=== PATIENT | female | born 1995 | race Caucasian/White ===

== ENCOUNTER 2023-05-24 12:05 | Outpatient (CLI) | payer MEDICAID, SELFPAY ==
--- NOTE | 2023-05-24 12:15 | CRLHL7_ITS ---
For Patients: As a result of the Century Cures Act, medical imaging exams and procedure reports are released immediately into your electronic medical record. You may view this report before your referring provider. If you have questions, please contact your health care provider. INDICATION: First trimester scan, establish dates. COMPARISON: None. TECHNIQUE: Real-time peraza-scale imaging of the pelvis was performed. FINDINGS: Yoke sac is upper limits of normal measuring 5.4 x 5.5 millimeters. Intrauterine gestational sac is present with mean sac diameter 15.1 millimeters, 6 weeks 1 day. pole is present measuring 5.3 millimeters, 6 weeks 2 days. No heart tones. The ovaries are normal. No ectopic. No pelvic free fluid. IMPRESSION: Intrauterine gestational sac with pole. pole measures 5.3 millimeters, 6 weeks 2 days. No heart tones. Follow-up in 10-14 days suggested. Dictated by Ludwig Jones MD @ 05/24/2023 1:03:35 PM (Electronically Signed)
== END 2023-05-24 12:06 | disposition home or self-care (01) ==
LOC: US 12:06
PROVIDERS: Visit Provider Advanced Practice Midwife
DX: Z34.91 Encounter for supervision of normal pregnancy, unspecified, first trimester (principal); Z3A.01 Less than 8 weeks gestation of pregnancy
CPT/HCPCS: 76817

== ENCOUNTER 2023-05-24 13:46 | Outpatient (CLI) | payer MEDICAID, SELFPAY | END 2023-05-24 13:47 | disposition home or self-care (01) | PROVIDERS: Visit Provider Advanced Practice Midwife | DX: Z34.91 Encounter for supervision of normal pregnancy, unspecified, first trimester (principal); Z3A.01 Less than 8 weeks gestation of pregnancy | CPT/HCPCS: 84702; 86850; 86900; 86901 ==

== ENCOUNTER 2023-05-26 09:42 | Outpatient (CLI) | payer MEDICAID, SELFPAY | END 2023-05-26 09:43 | disposition home or self-care (01) | LOC: NFLDREF 05-27 07:51 | PROVIDERS: Visit Provider Advanced Practice Midwife | DX: Z34.90 Encounter for supervision of normal pregnancy, unspecified, unspecified trimester (principal) | CPT/HCPCS: 84702 ==

== ENCOUNTER 2023-06-07 07:12 | Outpatient (CLI) | payer MEDICAID, SELFPAY ==
--- NOTE | 2023-06-07 07:15 | CRLHL7_ITS ---
For Patients: As a result of the Century Cures Act, medical imaging exams and procedure reports are released immediately into your electronic medical record. You may view this report before your referring provider. If you have questions, please contact your health care provider. Indication: Follow-up. Assess for viability Technique: Sonography the pelvis was performed. This includes grayscale and Doppler. The center was performed transvaginally Comparison: May 24, 2023 Findings: Again noted is a pole measuring 5 millimeters which is unchanged since the prior study. This corresponds to 6 weeks and 1 day. No heart activity is identified either by M-mode Doppler at or at real-time. Again noted is a gestational measures 2.5 centimeters and is somewhat irregular. A yolk sac is no longer visualized. No adnexal mass. Impression: Nonviable intrauterine first-trimester Dictated by Edson Simmons MD @ 06/07/2023 8:32:27 AM (Electronically Signed)
== END 2023-06-07 07:13 | disposition home or self-care (01) ==
PROVIDERS: Visit Provider Advanced Practice Midwife
DX: Z34.91 Encounter for supervision of normal pregnancy, unspecified, first trimester (principal); O03.9 Complete or unspecified spontaneous abortion without complication
CPT/HCPCS: 76817

== ENCOUNTER 2023-06-07 09:03 | Outpatient (CLI) | payer MEDICAID, SELFPAY | END 2023-06-07 09:04 | disposition home or self-care (01) | LOC: NFLDREF 09:04 | PROVIDERS: Visit Provider Advanced Practice Midwife | DX: O20.9 Hemorrhage in early pregnancy, unspecified (principal) | CPT/HCPCS: J2791 ==

== ENCOUNTER 2023-07-20 13:51 | Outpatient (CLI) | payer MEDICAID, SELFPAY ==
--- NOTE | 2023-07-20 14:00 | CRLHL7_ITS ---
For Patients: As a result of the Century Cures Act, medical imaging exams and procedure reports are released immediately into your electronic medical record. You may view this report before your referring provider. If you have questions, please contact your health care provider. CLINICAL HISTORY: INCOMPLETE MISSED Comparison 06/07/2023 TECHNIQUE: 2D peraza scale and color Doppler images were acquired of the pelvis using a transvaginal approach. FINDINGS: On transvaginal imaging, the myometrium has a normal uniform echotexture. The uterus measures 7.3 x 4.6 x 4.3 cm. The endometrial lining measures 15 mm in thickness. The endometrium is heterogeneous. However, no endometrial fluid is noted. Mild vascularity of the endometrium suggested. The left ovary measures 3.2 x 1.4 x 2.0 cm in size and the right ovary measures 3.5 x 1.5 x 2.3 cm. The ovaries demonstrate normal arterial and venous blood flow on color Doppler analysis. There are no suspicious fluid collections within the cul-de-sac. IMPRESSION: Thickened and heterogeneous endometrium with some mild internal vascularity. No endometrial fluid. In the appropriate clinical setting, cannot exclude mild retained products. Dictated by Ludwig Jones MD @ 07/21/2023 10:03:43 AM (Electronically Signed)
== END 2023-07-20 13:52 | disposition home or self-care (01) ==
LOC: US 13:52
PROVIDERS: Visit Provider Advanced Practice Midwife
DX: O02.1 Missed abortion (principal); Z01.818 Encounter for other preprocedural examination
CPT/HCPCS: 76830; 84702; 85610; 85730; 86850; 86870; 86900; 86901

== ENCOUNTER 2023-07-20 15:02 | Outpatient (CLI) | payer MEDICAID, SELFPAY | END 2023-07-20 15:03 | disposition home or self-care (01) | PROVIDERS: Visit Provider Advanced Practice Midwife | DX: O03.9 Complete or unspecified spontaneous abortion without complication (principal) | CPT/HCPCS: 84702; 85610; 85730; 86850; 86870; 86880; 86900; 86901 ==

== ENCOUNTER 2023-07-21 08:16 | Day surgery (SDC) | payer MEDICAID, SELFPAY ==
[2023-07-21] MEDS: DOXYCYCLINE HYCLATE 200 MG in 0.9 % SODIUM CHLORIDE Mini-bag 100 ML 100 MG IVPB (08:21)
[2023-07-21 08:31] VITALS: BP 115/68; PULSE 75; RESP 16; TEMP 36.9; O2SAT 96; BMI 24.4
--- NOTE | 2023-07-21 09:38 | W.PM.H&PU ---
History & Physical Update History & Physical Update H&P Reviewed and patient assessed: No changes noted H&P Updates: Preoperative diagnosis: Retained products of conception after spontaneous Planned procedures: hysteroscopy, dilation and curettage Physical exam: General: No acute distress, tearful Psych: Alert and oriented x3, full affect HEENT: Normocephalic, atraumatic Heart: Regular rate and rhythm, no murmur rub or gallop Lungs: Clear to auscultation bilaterally Labs: Labs from 07/20/2023: Blood type A negative, antibody positive Hemoglobin 13.7, platelets 205 Quant HCG 41.81, down from 27,139 on 05/26/2023
[2023-07-21] MEDS: LACTATED RINGERS 1000 ML 1,000 ML 100 ML IV (10:10)
[2023-07-21] MEDS: LIDOCAINE 1% 5 ml (pf) 5 ML VIAL 20 ML INJECTION (10:11)
[2023-07-21] MEDS: SODIUM CHLORIDE 0.9 % (FLUSH) 10 ML SYRINGE IVF (10:14)
[2023-07-21] MEDS: SILVER NITRATE APPLICATOR 1 EACH STICK..EA. TOPICAL (10:36)
[2023-07-21 10:48] VITALS: BP 96/58; PULSE 84; RESP 16; TEMP 36.2; O2SAT 99
--- NOTE | 2023-07-21 10:48 | W.ANESCHARGE ---
Anesthesia Charges Start Date/Time Anesthesia Start Date: 07/21/23 Anesthesia Start Time: 09:48 Stop Date/Time Anesthesia Stop Date: 07/21/23 Anesthesia Stop Time: 10:50
--- NOTE | 2023-07-21 10:49 | W.PM.GYNPROC ---
Procedure Note Date of procedure: 07/21/23 Pre-op diagnosis: Retained products of conception / incomplete spontaneous Post-op diagnosis: same Procedure: hysteroscopy, dilation and curettage Anesthesia: MAC and local Complications: None Surgeon: Bernice Antoine MD Estimated blood loss (mL): 20 IV fluids (mL): 600 Pathology: specimen obtained, sent to pathology (endometrial curettings) Condition: stable Disposition: same day Findings: Saline deficit: 560 mL 1. Upon pelvic exam under anesthesia, a perineal body defect was noted. The cervix cervix and vagina were otherwise normal in appearance. Uterus was mobile and anteverted, of normal size and texture. There were no palpable adnexal masses. 2. Upon hysteroscopy, survey of the endometrial cavity revealed abundant debris near the fundus. The cavity shape was normal. The cervix was patulous, and there was loss of the saline used for hysteroscopic distention medium around the hysteroscope and through the cervix for much of the case. Procedure Description: Procedure in detail: Patient was taken to the operating room with IV running. She received doxycycline in preoperative prophylaxis. She was positioned in dorsal lithotomy position with her legs fully supported in Yellofin stirrups. Monitored anesthesia care was administered. She was prepped and draped in the usual sterile fashion. Exam under anesthesia was performed for the above-noted findings. Speculum was inserted. Cervix visualized and grasped along the anterior lip with a single-tooth tenaculum. Paracervical block was performed for total of 10 mL of 1% lidocaine. Cervix was serially dilated to accommodate the TRUCLEAR hysteroscope. This was assembled with saline inflow and outflow in place. The line was flushed of bubbles. The hysteroscope was advanced through the cervix into the endometrial cavity for the above noted findings. The tissue morcellator was then inserted through the operating channel. Window lock was performed. Under direct visualization, the endometrial cavity was circumferentially curetted with the tissue morcellator. Given the persistent loss of hysteroscopy fluid, the tenaculum was removed and a ring forcep placed on the cervix, around this hysteroscope, to achieve better distention of the uterus. When the uterus appeared cleaned of all remaining placental fragments, the hysteroscope and morcellator were then removed from the uterus. Tenaculum was removed from the anterior lip of cervix. Hemostasis was achieved with silver nitrate. Patient tolerated procedure well. She was taken to recovery area in stable condition.
[2023-07-21 10:50] VITALS: BP 101/59; PULSE 86; RESP 16; O2SAT 99
--- NOTE | 2023-07-21 10:51 | W.ANESCHARGE ---
Anesthesia Charges Start Date/Time Anesthesia Start Date: 07/21/23 Anesthesia Start Time: 09:48 Stop Date/Time Anesthesia Stop Date: 07/21/23 Anesthesia Stop Time: 10:50
[2023-07-21 11:00] VITALS: BP 97/78; PULSE 80; RESP 16; O2SAT 97
[2023-07-21] MEDS: KETOROLAC 30 MG/ML inj IVP (11:09)
[2023-07-21 11:15] VITALS: BP 119/82; PULSE 57; RESP 16; O2SAT 99
[2023-07-21 11:30] VITALS: BP 109/77; PULSE 59; RESP 16; O2SAT 98
== END 2023-07-21 12:00 | disposition home or self-care (01) ==
PROVIDERS: Visit Provider Obstetrics & Gynecology
PROC: (CPT 58558; principal; 2023-07-21 09:20)
DX: O03.4 Incomplete spontaneous abortion without complication (principal)
CPT/HCPCS: 58558; 00952; 85018; 86850; 86900; 86901; 88305; A9270; J1885; J2250; J2405; J2704; J2791; J3010; J3490; J7120

== ENCOUNTER 2025-01-28 07:09 | Outpatient (CLI) | payer BC, SELFPAY ==
--- NOTE | 2025-01-28 07:15 | CRLHL7_ITS ---
For Patients: As a result of the Century Cures Act, medical imaging exams and procedure reports are released immediately into your electronic medical record. You may view this report before your referring provider. If you have questions, please contact your health care provider. INDICATION: Dating and viability. FINDINGS: A transabdominal and endovaginal pelvic ultrasound shows a single live intrauterine . Belk-rump length = 1.5 cm corresponding to an EGA of 8 weeks 0 days. cardiac activity present 169 beats per minute and regular. Small indentation in the gestational sac. 3.1 cm probable corpus luteum cyst in the right ovary. The ovaries are otherwise unremarkable. Impression : 1. Single live intrauterine measuring 8 weeks 0 days. 2. Small indentation in the gestational sac is a nonspecific finding and may be of no clinical significance. Dictated by German Knight MD @ 01/28/2025 11:50:08 AM (Electronically Signed)
== END 2025-01-28 07:10 | disposition home or self-care (01) ==
LOC: US 07:10
PROVIDERS: Visit Provider Midwife
DX: Z34.91 Encounter for supervision of normal pregnancy, unspecified, first trimester (principal); Z3A.08 8 weeks gestation of pregnancy
CPT/HCPCS: 76817; 83021; 84439; 84443; 86703; 86706; 86803; 86850; 86900; 86901; 87086; 87340

== ENCOUNTER 2025-01-28 08:45 | Outpatient (CLI) | payer BC, SELFPAY | END 2025-01-28 08:46 | disposition home or self-care (01) | PROVIDERS: Visit Provider Midwife | DX: Z34.81 Encounter for supervision of other normal pregnancy, first trimester (principal) | CPT/HCPCS: 83020; 83021; 84439; 84443; 85660; 86592; 86703; 86704; 86706; 86762; 86787; 86803; 86850; 86900; 86901; 87086; 87340 ==

== ENCOUNTER 2025-01-31 07:13 | Outpatient (CLI) | payer BC, SELFPAY ==
--- NOTE | 2025-01-31 07:15 | CRLHL7_ITS ---
For Patients: As a result of the Century Cures Act, medical imaging exams and procedure reports are released immediately into your electronic medical record. You may view this report before your referring provider. If you have questions, please contact your health care provider. INDICATION: Enlarged thyroid COMPARISON: none TECHNIQUE: Cash scale and color Doppler images were acquired of the thyroid gland. FINDINGS: The thyroid gland demonstrates heterogeneous echogenicity and has a smooth outer contour. The right lobe measures 6.8 x 2.6 x 2.2 cm and the left lobe measures 7.6 x 2.4 x 2.3 cm in size. Isthmus measures 1.3 cm. Solid and cystic nodule posterior left thyroid lobe measures 1.9 x 1.1 x 1.6 cm, TR 3. Additional solid and cystic nodule left thyroid lobe midportion measures 1.3 x 0.9 x 1.3 cm, TR 3. Mostly cystic nodule right thyroid lobe inferior pole measures 8 x 6 x 8 millimeters, TR 2. Additional mostly cystic nodule inferior pole right thyroid lobe measures 10 x 6 x 8 millimeters, TR 2. Solid and cystic nodule midportion right thyroid lobe measures 16 x 7 x 12 millimeters, TR 3. The color Doppler images demonstrate increased vascularity. There is no evidence of cervical lymphadenopathy or parathyroid mass. IMPRESSION: Enlarged, heterogeneous and hypervascular thyroid. No suspicious thyroid nodule. Dictated by Ludwig Jones MD @ 01/31/2025 8:25:07 PM (Electronically Signed)
== END 2025-01-31 07:14 | disposition home or self-care (01) ==
LOC: US 07:14
PROVIDERS: Visit Provider Midwife
DX: E04.9 Nontoxic goiter, unspecified (principal)
CPT/HCPCS: 76536

== ENCOUNTER 2025-02-25 09:13 | Outpatient (CLI) | payer BC, SELFPAY ==
[2025-02-25 17:38] LABS: Bacterial Vaginosis* Negative (Negative); Candida glab/krus NOT DETECTED (No Detected); Candida species DETECTED (No Detected); Trichomonas vaginalis NOT DETECTED (No Detected)
== END 2025-02-25 09:14 | disposition home or self-care (01) ==
PROVIDERS: Visit Provider Midwife
DX: N76.0 Acute vaginitis (principal); R82.90 Unspecified abnormal findings in urine; Z11.3 Encounter for screening for infections with a predominantly sexual mode of transmission
CPT/HCPCS: 81513; 87086; 87481; 87491; 87591; 87661

== ENCOUNTER 2025-04-22 13:52 | Outpatient (CLI) | payer BC, SELFPAY ==
--- NOTE | 2025-04-22 14:00 | CRLHL7_ITS ---
For Patients: As a result of the Century Cures Act, medical imaging exams and procedure reports are released immediately into your electronic medical record. You may view this report before your referring provider. If you have questions, please contact your health care provider. OB ULTRASOUND LMP: 12/02/2024. RORO by LMP: 09/08/2025. GA: 20 w, 1 d. INDICATION: screen. TECHNIQUE: Real time peraza scale imaging of the fetus was performed. Transabdominal imaging performed. position: Vertex. Cervix: Visualized. Technique: Transabdominal. Length of closed cervix: 5.0 cm. Placenta/cord: Bilobed, fundal. Placenta tip to internal OS: 7.3 cm. Umbilical Cord: 3-vessel cord. Placenta insertion: Central. Amniotic Fluid: 4.1cm SDP (greater than/equal to: 2- less than 8 cm). SURVEY: Observed Structures. Calvarium/Spine: Cerebellum: 2.1 cm, 20 w 6 d. Cisterna Magna: 5.1 mm. Nuchal Fold: 5.2 mm. Lateral Ventricle: 5.5 mm. CSP: Yes. Midline Falx: Yes. Choroid Plexus: Yes. Spine: Yes. Abdomen: Stomach: Yes. Abd Cord Insertion: Yes. Urinary Bladder: Yes. Kidneys: Yes. Diaphragm: Yes. Face: Nose/lips: Yes. Orbital view: Yes. Profile: Yes. Limbs: Upper Extremities: Yes. Lower Extremities: Yes. Hands: Yes. Feet: Yes. Vascular: 4-Chamber Heart: Yes. LVOT: Yes. RVOT: Yes. 3VV: Yes. 3VTV: Yes. BPD: 4.7 cm. 20 w, 1 d, 49 percent. HC: 17.5 cm. 20 w, 0 d, 36 percent. AC: 15.9 cm. 21 w, 0 d, 74 percent. FL: 3.2 cm. 19 w, 6 d, 32 percent. FL/AC ratio: 19.90 percent. HC/AC ratio: 1.10. heart rate: 155 bpm. age by this US: 20 w, 3 d. RORO by this US: 08/18/2025. EFW: 354 g. Weight: 0 lbs, 12 oz. Percentile by RORO: 63 percent. IMPRESSION: 1. Right renal pelvis measures 3.0 mm. Left renal pelvis measures 4.3 mm. Remainder of the anatomic survey is normal. Follow-up in the 3rd trimester recommended. 2. Fundal placenta is present which appears bilobed. No previa. 3. Concordance of clinical and sonographic dating. 4. Possible scarring at the lower uterine segment on the left. Ludwig Jones M.D. Diagnostic Radiologist [email or web address] TONI/Dictated by: Ludwig Jones MD @ 04/22/2025 7:17:00 PM (Electronically Signed)
== END 2025-04-22 13:53 | disposition home or self-care (01) ==
LOC: US 13:52
PROVIDERS: Visit Provider Registered Nurse
DX: Z34.92 Encounter for supervision of normal pregnancy, unspecified, second trimester (principal); Z3A.20 20 weeks gestation of pregnancy
CPT/HCPCS: 76805

== ENCOUNTER 2025-06-14 12:35 | Outpatient (CLI) | payer BC, SELFPAY | END 2025-06-14 12:36 | disposition home or self-care (01) | LOC: NFLDREF 06-18 04:32 | PROVIDERS: Visit Provider Midwife | DX: Z34.82 Encounter for supervision of other normal pregnancy, second trimester (principal) | CPT/HCPCS: 86592; 86850 ==

== ENCOUNTER 2025-06-28 08:01 | Outpatient (CLI) | payer BC, SELFPAY | END 2025-06-28 08:02 | disposition home or self-care (01) | PROVIDERS: Advanced Practice Midwife; Visit Provider Midwife | DX: R73.09 Other abnormal glucose (principal); Z34.93 Encounter for supervision of normal pregnancy, unspecified, third trimester; R79.89 Other specified abnormal findings of blood chemistry | CPT/HCPCS: 82951; 82952; 84443 ==

== ENCOUNTER 2025-07-16 13:03 | Outpatient (CLI) | payer BC, SELFPAY ==
--- NOTE | 2025-07-16 13:00 | CRLHL7_ITS ---
For Patients: As a result of the Century Cures Act, medical imaging exams and procedure reports are released immediately into your electronic medical record. You may view this report before your referring provider. If you have questions, please contact your health care provider. OB ULTRASOUND FOLLOW-UP/LIMITED, 07/16/2025 CLINICAL HISTORY: Follow-up renal pelvis. COMPARISON: 04/22/2025. TECHNIQUE: Real time peraza scale imaging of the fetus was performed. Transabdominal imaging performed. FINDINGS: LMP: 12/02/2024. RORO by LMP: 09/08/2025. GA: 32 weeks 2 days. Cervix: Not visualized. Positioning: Breech. Amniotic Fluid: 7.7 cm SDP. Placenta: Technique: TA. Placenta Position: Anterior, posterior. Dopplers: Heart Rate: 138 bpm. IMPRESSION: Left renal pelvis measures 7.3 mm. Right renal pelvis measures 6.6 mm. Ludwig Jones M.D. Diagnostic Radiologist [email or web address] Transcribed: 8:35 am DW/Dictated by: Ludwig Jones MD @ 07/17/2025 6:36:00 AM (Electronically Signed)
== END 2025-07-16 13:04 | disposition home or self-care (01) ==
LOC: US 13:03
PROVIDERS: Visit Provider Midwife
DX: O26.893 Other specified pregnancy related conditions, third trimester (principal); R93.89 Abnormal findings on diagnostic imaging of other specified body structures; Z3A.32 32 weeks gestation of pregnancy
CPT/HCPCS: 76816

== ENCOUNTER 2025-08-13 14:02 | Outpatient (CLI) | payer BC, SELFPAY ==
--- NOTE | 2025-08-13 14:00 | CRLHL7_ITS ---
For Patients: As a result of the Century Cures Act, medical imaging exams and procedure reports are released immediately into your electronic medical record. You may view this report before your referring provider. If you have questions, please contact your health care provider. OB ULTRASOUND INDICATION: Breech presentation. Growth. LMP: 12/02/2024. RORO by LMP or US: 09/08/2025. GA: 36 w, 2 d. Single. COMPARISON: 07/16/2025, 04/22/2025,01/28/2025. TECHNIQUE: Real time peraza scale imaging of the fetus was performed. Transabdominal imaging performed. CERVIX: Not visualized. POSITIONING: Breech. AMNIOTIC FLUID: 22.8 cm LOS. 8.2 cm SDP (N: greater than 2 x 1 cm). PLACENTA: Technique: Transabdominal. PLACENTA POSITION: Anterior, fundal, posterior. DOPPLER: heart rate: 134 bpm. BIOMETRY: BPD: 9.5 cm. 39 w, 0 d, greater than 97 percent. HC: 34.1 cm. 39 w, 2 d, 87.6 percent. AC: 34.7 cm. 38 w, 4 d, greater than 97 percent. FL: 6.7 cm. 34 w, 5 d, 11.1 percent. FL/AC ratio: 19.5 percent. HC/AC ratio: 1.0. EFW: 3313 g. Weight: 7 lbs, 5 oz. age by this US: 37 w, 6 d. RORO by this US: 08/28/2025. Percentile by RORO: 88.4 percent. IMPRESSION: 1. Sonographic gestational age 37 weeks 6 days and sonographic due date 08/28/2025. Sonographic age is 11 days ahead of the clinical age. 2. Estimated weight 88th percentile. Abdominal circumference greater than 97th percentile. BPD also greater than 97th percentile. 3. Amniotic fluid single deepest pocket 8.2 cm, LOS 22.8 cm. 4. Left renal pelvis measures 12 mm. Right renal pelvis measures 8 mm. follow-up recommended. 5. Nuchal cord is present with the cord wrapped around the neck 2 times. Ludwig Jones M.D. Diagnostic Radiologist [email or web address] TONI/Dictated by: Ludwig Jones MD @ 08/13/2025 7:49:00 PM (Electronically Signed)
== END 2025-08-13 14:03 | disposition home or self-care (01) ==
LOC: US 14:03
PROVIDERS: Visit Provider Obstetrics & Gynecology
DX: O36.63X0 Maternal care for excessive fetal growth, third trimester, not applicable or unspecified (principal); O32.1XX0 Maternal care for breech presentation, not applicable or unspecified; Z3A.36 36 weeks gestation of pregnancy; Z34.93 Encounter for supervision of normal pregnancy, unspecified, third trimester
CPT/HCPCS: 76816; 87081; 87653

== ENCOUNTER 2025-08-13 14:12 | Outpatient (CLI) | payer BC, SELFPAY ==
[2025-08-14 14:23] LABS: Strep B DNA Probe POSITIVE (Negative)
[2025-08-14 14:42] LABS: Strep B Susceptibility Needed? No
== END 2025-08-13 14:13 | disposition home or self-care (01) ==
LOC: NFLDREF 14:13
PROVIDERS: Visit Provider Obstetrics & Gynecology
DX: Z34.93 Encounter for supervision of normal pregnancy, unspecified, third trimester (principal); Z3A.36 36 weeks gestation of pregnancy
CPT/HCPCS: 87081; 87653

== ENCOUNTER 2025-08-19 07:14 | Outpatient (CLI) | payer BC, SELFPAY ==
--- NOTE | 2025-08-19 07:15 | CRLHL7_ITS ---
For Patients: As a result of the Century Cures Act, medical imaging exams and procedure reports are released immediately into your electronic medical record. You may view this report before your referring provider. If you have questions, please contact your health care provider. OB ULTRAOSOUND FOLLOW-UP LIMITED CLINICAL HISTORY: Labor and delivery complicated by cord around neck. COMPARISON: 08/13/2025, 07/16/2025, 04/22/2025. TECHNIQUE: Real time peraza scale imaging of the fetus was performed. Transabdominal imaging performed. FINDINGS: RORO by LMP/US: 09/08/2025. GA: 37 weeks 1 day. Gestation: Single. Cervix: Not visualized. Positioning: Breech. Amniotic Fluid: 6.9 cm SDP. Placenta: Technique: TA. Placenta Position: Anterior/posterior. Bilobed. Dopplers: Heart Rate: 141 bpm. IMPRESSION: 1. The umbilical cord is wrapped around the baby???s neck two times. 2. Bilateral renal pelviectasis measures 8.8 mm on the left and 7.9 mm on the right. Post- follow-up recommended. Ludwig Jones M.D. Diagnostic Radiologist [email or web address] Transcribed: 9:11 am DW/Dictated by: Ludwig Jones MD @ 08/19/2025 8:26:00 AM (Electronically Signed)
== END 2025-08-19 07:15 | disposition home or self-care (01) ==
PROVIDERS: Visit Provider Obstetrics & Gynecology
DX: O69.1XX0 Labor and delivery complicated by cord around neck, with compression, not applicable or unspecified (principal); Z3A.37 37 weeks gestation of pregnancy
CPT/HCPCS: 76816

== ENCOUNTER 2025-09-04 05:47 | Inpatient (IN) | payer BC, SELFPAY ==
[2025-09-04] VITALS (22 sets, daily range): BP systolic 99–124; BP diastolic 59–82; PULSE 76–103; RESP 16–20; TEMP 36.3–36.7; O2SAT 95–98; BMI 31.3
[2025-09-04] MEDS: LACTATED RINGERS 1000 ML 1,000 ML 1025 ML IV (06:13)
[2025-09-04 06:22] LABS: Hematocrit* 36.9 % (33.0-51.0); Hemoglobin* 12.2 gm/dL (12.0-16.0); Immature Granulocytes Abs Auto 0.02 K/uL (0.00-0.30); Immature Granulocytes Pct Auto 0.4 %; Lymphocytes Absolute Auto 1.81 K/uL (0.90-2.90); Mean Corpuscular HGB Conc 33 gm/dL (32-36); Mean Corpuscular Hemoglobin 31 pg (26-34); Mean Corpuscular Volume 93 fL (80-100); RDW Coefficient of Variation % 12.7 % (11.5-15.5); Red Blood Count* 3.96 m/uL (4.00-5.20); White Blood Count* 5.71 K/uL (4.50-11.00)
[2025-09-04 06:37] LABS: Slide Review Reflex No
--- NOTE | 2025-09-04 07:05 | P.LDBA_ITS ---
Subjective History of Present Illness Time Seen by Provider: 07:05 Date Seen: 09/04/25 Narrative: Patient is being admitted to Labor and Delivery for delivery due to persistent breech presentation. She is a 30 year old at 39 3/7 weeks gestation. Her full history and physical was dictated by Dr. WELLS on 08/28/25. Please see this for details. Patient denies any new concerns or complaints. Specific Issues/Plans G6 P 3023 Partner: Dewayne? H&P completed by PRISCILLA on 08/28/25 # Breech at 32 weeks, continuing at 36 weeks and 38 weeks Desires external cephalic version. Scheduled for 08/[address] Dunlap and Arash-cancelled delivery scheduled for 09/04/25 # Undesired fertility. Prefers salpingectomy in case of . Otherwise, plans for vasectomy-changed her mind NO SURGICAL STERILIZATION # A negative blood type Declined Rhogam in , encouraged to take if baby Rh+. Declination signed 07/16. # Bilobed placenta, Fundal No traction with third stage # Left renal pelvis measures 4.3 mm on FAS recommended follow up in 3rd trimester, plan at 32 weeks 32 wk US- left renal pelvis = 7.3mm (abnormal), right renal pelvis = 6.6mm Will need follow up #Failed 1 hr GTT, Passed 3 hr (93,177,132,111) #Enlarged Thyroid: TSH check each trimester-TSH low at NOB, T4 normal. To thyroid US: 3 TR3 nodules-1.5cm, heterogenous, hypervascular, enlarged thyroid. Endo referral sent.-More detailed labs, antibody checks were all normal. T3 was only level minimally off. No diagnosis made. 03/04/2025: Endo visit with low TSH. Repeat labs were WNL, TSH 0.23, all other thyroid labs normal; no additional follow-up needed in . Needs repeat thyroid function labs 2-3 months and repeat thyroid US in 1 year or January 2026 to assess thyroid nodules Imaging:? 1st trimester: Ultrasound #1: 1/7 weeks by LMP, 8 0/7 weeks by u/s? RORO: 09/08/2025 by LMP, c/w 1st trimester u/s, SLIUP? Anatomy scan: Normal anatomy findings but bilobed placenta, Normal cord and insertion. 63% EFW. ?? ? COVID: declines Flu:?declines?? Tdap:?declines RSV: declines 32wk Mental Health:?07/16/25 34wk hgb:?07/30 11.8?? Hep B: immunity unknown, stay at home and offered vaccine Pap: [(Only high-risk abnormal pap in problem list)]? OB - Problem Based A/P Additional Plan (1) Breech presentation: Status: Acute Plan Bedside US confirms persistent mariel breech presentation at this time. Informed consent reviewed. Will proceed with scheduled delivery asa planned. OB Exam Detailed Labor and Delivery Exam Patient Gravid: yes Fetus (Single) Position: Other (Mariel breech confirmed by bedside US. ) Heart Rate Baseline: 135 Monitor Accelerations: Present Monitor Decelerations: None Mcfp Variability: Moderate (6-25)
[2025-09-04] MEDS: LACTATED RINGERS 1000 ML 1,000 ML 125 ML IV (07:15)
--- NOTE | 2025-09-04 07:16 | PM.OBPRCCS ---
OB Delivery Proc Additional Procedures Tubal Ligation at the time of : No Other: No Procedure Time Seen by Provider: 07:41 Date of procedure: 09/04/25 Pre-op diagnosis: IUP at 39 3/7 weeks Rupert breech presentation Post-op diagnosis: same Procedure Done: Global Will [facility] bill your pro fee for this procedure?: Yes Blood Loss Measurement Type: QBL (598mL) Bakri Used: No IV fluids (mL): 1,200 Urine Output (mL): 200 Urine Output Comment: Clear at end of procedure Surgeon: Esther Talbert MD Anesthesia Type: Spinal Findings: FINDINGS: Live-born male infant, breech presentation, Apgars 8 and 9 at 1 and 5 minutes respectively. weight pending. Bilateral fallopian tubes and ovaries grossly normal. Procedure Name: Primary low transverse section Procedure Description: PROCEDURE: After obtaining informed consent, the patient was taken to the operating room where spinal anesthesia was obtained and found to be adequate. She was prepared and draped in the normal sterile fashion in the dorsal supine position with a leftward tilt. A Pfannenstiel skin incision was made with a scalpel about 2 cm above symphysis pubic bone, 12-14 cm in length. This incision was carried down to the underlying layer of fascia with the Bovie and scalpel. The fascia was incised in the midline and the incision extended laterally. The rectus muscles were then in the midline. Peritoneum entered bluntly. The Valdez O retractor was then placed into the incision. The lower uterine segment was then incised in a transverse fashion with the scalpel. Upon entry into the uterus, clear amniotic fluid was noted. The uterine incision was extended cephalo caudally with blunt finger fractionation. Baby's sacrum/buttocks were brought to incision and with fundal pressure fetus was delivered up to scapulas, hips were then grasped with a lap and gently assisted delivery the rest of the body, essentially fetus was delivered with only fundal pressure. The cord was doubly clamped and cut after 1 minute of delayed cord clamping and the was handed off the field to warm for evaluation. The placenta was delivered spontaneously with umbilical cord traction and fundal massage. The uterus was cleared of all clots and debris. The uterine incision was reapproximated in a running locking fashion with a 0 Vicryl suture. A 2nd layer of the same suture was used to imbricate in horizontal fashion. The gutters were inspected and cleared of blood clot. All instruments and retractors were removed. Peritoneum was approximated with Vicryl 3-0 in a continuos fashion. Subfascial muscles thoroughly inspected and hemostasis secured. The fascia was reapproximated in a running fashion with a looped 0 Vicryl suture. The subcutaneous tissues were copiously irrigated, inspected and hemostasis secured. The subcutaneous fat layer was reapproximated with running sutures of 3-0 Vicryl. The skin was closed in a subcuticular fashion with 4-0 Monocryl. LiquiBand and dressing were applied. The patient tolerated the procedure well. Sponge, lap, needle, and instrument counts were reported as correct x2. The patient was taken to the recovery room, awake, and in stable condition. She did receive 2 grams of IV Ancef preoperatively. Complications: None Pathology: none sent Surgery Debrief Performed: Yes Condition: stable Disposition: floor
[2025-09-04] MEDS: CEFAZOLIN 2 GM INJ IVP (07:30)
--- NOTE | 2025-09-04 08:38 | P.ANES_ITS ---
Anesthesia Charges Start Date/Time Anesthesia Start Date: 09/04/25 Anesthesia Start Time: 07:15 Stop Date/Time Anesthesia Stop Date: 09/04/25 Anesthesia Stop Time: 08:41 Coding CPT Codes CPT Codes: ANESTH CS DELIVERY - 60461 ([id number]) P2 - PATIENT W/MILD SYST DISEASE, QK - DATA DEVELOPER 2-4 CNCRNT ANES PROC, QX - CARBON CLEANER SVC W/ MD MED DIRECTION
--- NOTE | 2025-09-04 08:38 | W.ANESCHARGE ---
Anesthesia Charges Start Date/Time Anesthesia Start Date: 09/04/25 Anesthesia Start Time: 07:15 Stop Date/Time Anesthesia Stop Date: 09/04/25 Anesthesia Stop Time: 08:41 Coding CPT Codes CPT Codes: ANESTH CS DELIVERY - 43119 ([id number]) P2 - PATIENT W/MILD SYST DISEASE, QK - ORAL SURGERY ASSISTANT 2-4 CNCRNT ANES PROC, QX - SOUP PERSON SVC W/ MD MED DIRECTION
--- NOTE | 2025-09-04 09:10 | W.PM.NB ---
Nerve Block Nerve Block Time Seen by Provider: 08:25 Date Seen: 09/04/25 Type of block requested by surgeon for post-operative analgesia: TAP Side: bilateral Time out performed: Yes Verification of patient name: Yes Verification of date of : Yes Site marking: site marked Name of person performing procedure: Aviva Bravo Continuous monitoring Was continuous monitoring of O2 sat, B/P, color television console monitor, recorded every 15 minutes?: Yes Procedure Checklist: sterile prep, needles and gloves Ultrasound guided. Images saved: Yes Medications given in 5ml increments after negative aspiration: Marcaine %: 0.25 mL: 30 Needle gauge: 20 and Exparel mL: 10 Needle gauge: 20 Patient tolerated procedure well: Yes Block Charges Block Charge (with Pro Fee): TAP Bilateral Use of Ultrasound Machine for Block: Yes- US Guidance/pain block
--- NOTE | 2025-09-04 09:11 | P.ANES_ITS ---
Anesthesia Charges Start Date/Time Anesthesia Start Date: 09/04/25 Anesthesia Start Time: 07:15 Stop Date/Time Anesthesia Stop Date: 09/04/25 Anesthesia Stop Time: 08:41 Coding CPT Codes CPT Codes: ANESTH CS DELIVERY - 79489 ([id number]) P2 - PATIENT W/MILD SYST DISEASE, QK - GLOBAL LEAD 2-4 CNCRNT ANES PROC
--- NOTE | 2025-09-04 09:11 | W.ANESCHARGE ---
Anesthesia Charges Start Date/Time Anesthesia Start Date: 09/04/25 Anesthesia Start Time: 07:15 Stop Date/Time Anesthesia Stop Date: 09/04/25 Anesthesia Stop Time: 08:41 Coding CPT Codes CPT Codes: ANESTH CS DELIVERY - 94907 ([id number]) P2 - PATIENT W/MILD SYST DISEASE, QK - HOME HEALTH BILLING SPECIALIST 2-4 CNCRNT ANES PROC
[2025-09-04] MEDS: ACETAMINOPHEN 500 MG TABLET 1000 MG PO ×2 (13:23→20:05)
[2025-09-04] MEDS: DOCUSATE SODIUM 100 MG CAPSULE PO (20:05)
[2025-09-05] VITALS (12 sets, daily range): BP systolic 105–122; BP diastolic 60–84; PULSE 63–92; RESP 16–18; TEMP 36.6–36.9; O2SAT 96–98
[2025-09-05] MEDS: ACETAMINOPHEN 500 MG TABLET 1000 MG PO ×3 (05:38→18:10)
[2025-09-05 06:12] LABS: Hemoglobin* 10.7 gm/dL (12.0-16.0)
--- NOTE | 2025-09-05 08:14 | PM.OBPNVD1 ---
OB - PN:Subj Subjective Date Seen: 09/05/25 Narrative: Radha is a 30 year old who was admitted for scheduled for breech lie and proceeded to have a primary ?.The patient feels well.? The pain is well controlled with current medications.? She has no new complaints.? Urinary output is adequate and she is voiding without difficulty.? Has a good appetite, is tolerating a general diet, is passing flatus, and has not had a bowel movement.? Has scant amount of rubra lochia.? She is ambulating well. She is and reports it is going well.? OB - PN: Obj Exam Physical Exam: Vital signs: Temp Pulse Resp BP Pulse Ox O2 Del Method 98.3 F 63 18 105/69 96 Room Air 09/05/25 06:04 09/05/25 06:04 09/05/25 06:04 09/05/25 06:04 09/05/25 00:53 09/05/25 06:04 Narrative: GENERAL APPEARANCE:? normal affect, alert, no distress MOOD:? appropriate CHEST:? clear to auscultation HEART:? regular rate and rhythm ABDOMEN:? soft, non-tender the uterine fundus is At Umbilicus, Midline and is appropriate for the stage of recovery. EXTREMITIES:? normal and minimal edema Incision: Surgical dressing in place with no surrounding erythema or discharge OB - PN: Obj Data Labs Labs: Laboratory Results - last 24 hr 09/05/25 05:55 Hgb 10.7 L Screen Negative OB - PN: A/P Delivery Assessment and Plan (1) care and examination of lactating mother: Status: Acute (2) Status post primary low transverse section: Problem details: 2024 breech lie Status: Acute Plan Comments: PP day #1 Routine care May see as desired Anticipate discharge 09/06/2025
[2025-09-05] MEDS: DOCUSATE SODIUM 100 MG CAPSULE PO ×2 (09:13→21:13)
[2025-09-05] MEDS: IBUPROFEN 600 MG TABLET PO (21:12)
[2025-09-05] MEDS: LANOLIN CREAM 1 APPLIC TOPICAL (21:55)
[2025-09-06] MEDS: IBUPROFEN 600 MG TABLET PO ×4 (04:35→22:56)
[2025-09-06] MEDS: ACETAMINOPHEN 500 MG TABLET 1000 MG PO ×4 (04:35→22:55)
[2025-09-06 05:00] VITALS: BP 102/61; PULSE 81; RESP 16; TEMP 36.7; O2SAT 98
[2025-09-06] MEDS: DOCUSATE SODIUM 100 MG CAPSULE PO ×2 (08:16→23:03)
[2025-09-06 08:17] VITALS: BP 116/71; PULSE 90; RESP 16; TEMP 36.5; O2SAT 96
--- NOTE | 2025-09-06 09:24 | PM.OBPNVD1 ---
OB - PN:Subj Subjective Date Seen: 09/06/25 Patient comments OB post-: pain well controlled feeding status: exclusively Narrative: Radha is a 30 y.o. G 6 P 4 who was admitted to [facility] for scheduled C-sec for breech. ?She had a section that was uncomplicated. The patient feels well. ?The pain is well controlled with current medications. ?She has no new complaints. ?She is breast feeding and reports things are going well. the patient has done well.? Vitals have been stable.? She has remained afebrile.? Has a good appetite, is tolerating a general diet. ?She is voiding without difficulty.? She is passing gas and has a small had a bowel movement.? She is ambulating and denies any dizziness.? Has small amount of rubra lochia. Problems: none OB - PN: Obj Exam Physical Exam: Vital signs: Temp Pulse Resp BP Pulse Ox O2 Del Method 97.7 F 90 16 116/71 96 Room Air 09/06/25 08:17 09/06/25 08:17 09/06/25 08:17 09/06/25 08:17 09/06/25 08:17 09/06/25 08:17 Narrative: GENERAL APPEARANCE:? normal affect, alert, no distress MOOD:? appropriate CHEST:? clear to auscultation HEART:? regular rate and rhythm ABDOMEN:? soft, non-tender the uterine fundus is At Umbilicus, Midline and is appropriate for the stage of recovery. EXTREMITIES:? normal and no edema: wearing compression stockings and has had them on all night. Incision: Healing well, no surrounding erythema, abnormal induration or discharge OB - PN: Obj Data Labs Labs: Laboratory Results - last 24 hr 09/04/25 06:10 RPR Screen Non Reactive OB - PN: A/P Delivery Assessment and Plan (1) care and examination of lactating mother: Status: Acute (2) Status post primary low transverse section: Problem details: 2024 breech lie Status: Acute Plan day: 1 Plan: routine care Comments: Anticipate d/c tomorrow May see if desires
--- NOTE | 2025-09-06 10:51 | AC.NBPN ---
NB PN: HPI Service Date Time Seen by Provider: 08:45 Date Seen: 09/06/25 IntHx/Subj Interval history: Infant with failed CCHD screening x2. 's oximetry saturation range 87-91% on room air with desaturations into the mid 80s with oximeter probe on right wrist with good pleth wave since continuous oximetry placed on the this morning. Normal exam with easy breathing effort, no murmur, and active. Echo cardiogram read as normal per Dr Cory Woody and no cardiology follow up required. Discussed with parents echogram results. Discussed with parents my concern with infant's abnormal oximeter saturations and diagnosis of slow transition from transient tachypnea of the (TTN) versus sepsis. Early chest CXray consistent with TTN and normal heart size. Infant delivered by non-labored, not ruptured, due to breech presentation. Infant started on LFNC 1/4 LPM 100% with an Effective FOi2 26%. Blood culture, CBC w/ diff and CRP. Explained if white count or CRP were both elevated would plan on starting and IV for antibiotics to include a 48-hour sepsis work up. White count normal and CRP slightly elevated. Will not start antibiotics. Will wean NC liter flow as saturations improve. Discharge planning date unknown at the time. Parents questions and concerns addressed. Continue to monitor closely and wean as able. Please remove this note from this chart, as the note has already been placed into the infant's chart and charged appropriately. Ignacio Munguia APRN, HEATING AND VENTILATION ENGINEER Delivery Gender: Male Delivery Time: 07:41 Delivery Date: 09/04/25 Delivery Method: Primary C/S; Non-Labored weight: 4.04 kg Weight: 87.997 kg Percent Weight Change: 2076.32 Length: 167.64 cm Weeks Gestation At Delivery (32.0 - 42.0): 39.3 NB Vitals Data Weight/Weight Change Weight/Weight Change [place] Weight 4.04 kg Weight 87.997 kg Recent Vital Signs Recent Vital Signs: Last Vital Signs Temp 97.7 F 09/06/25 08:17 Pulse 90 09/06/25 08:17 Resp 16 09/06/25 08:17 BP 116/71 09/06/25 08:17 Pulse Ox 96 09/06/25 08:17 O2 Del Method Room Air 09/06/25 08:17 Results Labs Labs: Laboratory Results - last 24 hr 09/04/25 06:10 RPR Screen Non Reactive [place] A/P Assessment and plan (1) care and examination of lactating mother: Status: Acute (2) Status post primary low transverse section: Problem comment: 2024 breech lie Status: Acute Assessment and Plan Assessment and Plan: Plan: ? cares - Started LFNC (saline gel Q 3-4 hours to prevent nasal dryness) - Blood culture, CBC w/ diff and CRP completed - Echogram: normal and no cardiology follow up per Dr Woody (Pipe [employer] Supervisor) - Breast?feeding ad tina with no more than 3 hours between feedings.?? - to see family prior to discharge if able - Discussed plan in length with parents and have updated them throughout the day. - Primary?provider is Dr Sabas Gleason at [facility]. - Anticipate?discharge 24-48 hours.
[2025-09-06 15:30] VITALS: BP 109/67; PULSE 88; RESP 16; TEMP 36.4; O2SAT 97
[2025-09-06 23:05] VITALS: BP 115/68; PULSE 77; RESP 16; TEMP 36.4; O2SAT 98
[2025-09-07 04:34] VITALS: BP 118/80; PULSE 91; RESP 20; TEMP 36.6
[2025-09-07] MEDS: ACETAMINOPHEN 500 MG TABLET 1000 MG PO ×2 (05:00→11:09)
[2025-09-07] MEDS: IBUPROFEN 600 MG TABLET PO ×2 (05:01→11:10)
[2025-09-07] MEDS: DOCUSATE SODIUM 100 MG CAPSULE PO (08:43)
[2025-09-07 10:20] VITALS: BP 120/79; PULSE 85; RESP 16; TEMP 36.8; O2SAT 97
--- NOTE | 2025-09-07 10:42 | PM.OBDSVD1 ---
DS: Providers Provider Date Seen: 09/07/25 Date of admission: 09/04/25 05:47 Primary care physician: Not a Local Provider Admitting Clinician: Marisela Talbert MD Attending Physician on discharge: Marisela Talbert MD Date of Discharge: 09/07/25 DS: Diagnosis Discharge Diagnosis (1) Status post primary low transverse section: Status: Acute Problem details: 2024 breech lie (2) Anemia associated with acute blood loss: Status: Acute Problem details: Postop Hgb 10.7 Exam Const: Vital Signs, click to edit/add: Vital Signs - 24 hr 09/06/25 15:30 09/06/25 23:05 09/07/25 04:34 Temperature 97.5 F L 97.5 F L 97.9 F Pulse Rate [Left P ulse Oximeter] 88 77 91 Respiratory Rate 16 16 20 Blood Pressure [Le ft Arm] 109/67 115/68 118/80 Pulse Oximetry 97 98 Oxygen Delivery Me thod Room Air Room Air 09/07/25 10:20 Temperature 98.2 F Pulse Rate [Left P ulse Oximeter] 85 Respiratory Rate 16 Blood Pressure [Le ft Arm] 120/79 Pulse Oximetry 97 Oxygen Delivery Me thod Room Air Documenting provider has reviewed patient's vital signs: yes Common normals: no apparent distress and oriented x3 General appearance: cooperative and comfortable Resp: Common normals: normal respiratory effort Cardio: Common normals: regular rate Rate: regular rate GI: Common normals: soft to palpation and non-tender Inspection: normal to inspection and incision Inspection of incision: healing well (Non erythematous, nontender) Palpation: soft Extremity: Common normals: normal to inspection General: edema (1+) Neuro: Common normals: oriented x3 Psych: Common normals: affect normal OB - DS: Summary Hospital Course Hospital Course: The patient is a 30 year old G 6 P 4024 that was admitted to the Center on 09/04/25 at 39 3/7 weeks gestation for scheduled primary section for breech. She had an uncomplicated delivery. She delivered a viable male . She is breast feeding. the patient has done well. Peripartum Data Infant delivery method: Primary C/S; Non-Labored Procedures: Procedures Operation Date: 09/04/25 07:15 Actual Procedure Side Surgeon p Primary Low Transverse Section Marisela Talbert MD [place] Infant Gender: Male Discharge Plan: continued observation Time Spent with Patient Time attestation: Total time spent providing and/or coordinating discharge services: Discharge Plan Discharge Disposition: Home, Self-Care Date of Admission: 09/04/25 05:47 Attending Provider on Discharge: Franca Carson Primary Care Provider: Provider,Not a Local Condition: Stable Anticipated Discharge Date/Time: 09/07/25 10:50 Discharge Medications: New docusate sodium 100 mg Capsule 100 mg PO BID Qty: 30 0RF ibuprofen 600 mg Tablet 600 mg PO Q6H PRN (Reason: Pain) Qty: 30 0RF oxycodone 5 mg Tablet 5 - 10 mg PO Q4H PRN (Reason: Pain) Qty: 10 0RF Continued good girl vaginal probiotic 50 mg capsule 50 mg miscellaneous DAILY grass fed organ complex miscellaneous wild caught fish samuel miscellaneous ascorbic acid (vitamin C) 500 mg capsule 500 mg PO DAILY Discharge Orders: Discharge Order (Routine); Ordered 09/07/25 Ordered By: Franca Carson Patient Education: Bupivacaine Liposome (By injection), OB Over the Counter Medication Information, OB /Breast Feeding Activity Level: Activity as Tolerated Discharge Diet: Regular Follow Up Appointments: Provider,Not a Local [Primary Care Provider, Family Practice] Forms: MyHealth Info Instructions DS:Data Additional Comments Additional comments: hemoglobin 10.7
== END 2025-09-07 13:10 | disposition home or self-care (01) | DRG 540 ==
PROVIDERS: Admitting Provider Obstetrics & Gynecology; Visit Provider Obstetrics & Gynecology
PROC: 10D00Z1 Extraction of Products of Conception, Low, Open Approach (ICD-10-PCS; CPT 59514; principal; 2025-09-04 07:15)
DX: O32.1XX0 Maternal care for breech presentation, not applicable or unspecified (principal); O26.893 Other specified pregnancy related conditions, third trimester; Z67.11 Type A blood, Rh negative; G89.18 Other acute postprocedural pain; Z37.0 Single live birth; Z3A.39 39 weeks gestation of pregnancy
CPT/HCPCS: 01961; 36415; 64488; 76815; 76942; 85018; 85025; 85461; 86592; 86850; 86900; 86901; A4314; A9270; J0665; J0666; J0690; J1885; J2274; J2371; J2405; J2590; J2765; J7120